=== PATIENT | male | born 1970 | race African-American/Black ===

== ENCOUNTER 2016-11-16 19:28 | Inpatient (IN) | payer OTHER ==
--- NOTE | ~2016-11-16 | PN ---
Unit #: [id number] #: [id number] Patient: KIANA SEWELL [id number] [facility] [address] [place] [address] [id number] I MR#: [id number] NAME: KIANA SEWELL. ROOM: P185 Age: 46 Sex: M Admission Date: 11/16/2016 : 1970 Attending Physician: Estrella Watkins M.D. Admitting Physician: Estrella Watkins M.D. Primary Care Physician: Kathrin Doctor Not In System [facility] PROGRESS NOTES DATE November 20, 2016 DISCUSSION Mr. Sewell is a 46-year-old male, who was seen today and chart was reviewed and the case was discussed with the staff. He has been anxious, withdrawn, and rather seclusive to himself. Meanwhile, he has been cooperative with the treatment recommendations and he has been taking the medications and tolerating them fairly well with no reported side effects. MENTAL STATUS EXAMINATION Middle-aged male, who was casually dressed with fair personal hygiene and appears to be in no acute distress or discomfort. He was awake and alert with impaired attention and concentration. His mood is anxious with a congruent affect. He denies any suicidal or homicidal ideations. His insight and judgment remain slightly impaired. TREATMENT PLAN 1. We will continue him on his current medications and treatment protocol, and will monitor his response to the medications, and make further adjustments as needed. 2. We will continue to followup. Dictated by... Joce Turner/livia TD: 11/20/2016 08:13 JOB #: [id number] Unit #: [id number] #: [id number] Patient: KIANA SEWELL PROGRESS NOTES Page 1 of 1 X Estrella Watkins MD PROGRESS NOTE
--- NOTE | ~2016-11-16 | PA ---
Unit #: [id number] #: [id number] [facility]: [facility] [id number] [facility] [address] [place] [address] [id number] I MR#: [id number] NAME: KIANA SEWELL. ROOM: P185 Age: 46 Sex: M Admission Date: 11/16/2016 : 1970 Date of Assessment: 11/17/2016 Attending Physician: Estrella Watkins M.D. Admitting Physician: Estrella Watkins M.D. Primary Care Physician: Generic Doctor Not In System PSYCHIATRIC ASSESSMENT IDENTIFYING DATA Mr. Sewell is a 46-year-old single male who is a resident of [place], [place] and was transferred to us from [facility] Emergency Room. CHIEF COMPLAINT "I'm wanting to ." HISTORY OF PRESENT ILLNESS Mr. Sewell is a 46-year-old male with history of mood disorder, who was seen at [facility] Emergency Room due to having suicidal ideation, and making statements that he wants to and that he began having thoughts about wanting to and that he feels useless, and decided to come to the hospital to get assistance and help, and reports that he is living with a friend and the environment is not the best and he has not been taking Zoloft and "I just want to ." The patient reports hearing voices sometimes telling him to go to "you're shit and just go ahead and ." He was seen to be danger to self and others and as such, recommendation for inpatient level of care for safety and stabilization was made and the patient was transferred to us. SUBSTANCE ABUSE HISTORY The patient reports history of alcohol, cannabis and cocaine abuse and reports that he has been drinking few beers, and smoking some cannabis, but denies any other drug abuse. PAST PSYCHIATRIC HISTORY The patient has had [facility] and review of the medical records indicate that he has been diagnosed and treated for mood disorder, but currently is noncompliant with treatment and he is not seeing a psychiatrist, and is not taking any psychotropic medications. PAST MEDICAL HISTORY No acute or chronic medical illnesses. ALLERGIES No known medication allergies. CURRENT MEDICATIONS None. PERSONAL AND SOCIAL HISTORY Unit #: [id number] #: [id number] Patient: KIANA SEWELL A 46-year-old male who reports that he is single, unemployed, and lives with a roommate and has poor social support system. MENTAL STATUS EXAMINATION Middle-aged male who was casually dressed with fair personal hygiene, appears to be in no acute distress or discomfort. He was awake and alert on interaction with intact orientation to time, place, and person. His mood was anxious and depressed with a congruent affect. His speech was slow and restricted in content. His thought processes were disorganized with some looseness of associations and suicidal ideations and auditory hallucinations. His insight and judgment remain significantly impaired. DIAGNOSTIC IMPRESSION Psychiatric: Major depressive disorder, recurrent, moderate, with psychosis; alcohol dependence, moderate and acute withdrawals. Medical: None. Stressors: Moderate psychosocial stressors. TREATMENT PLAN 1. The patient has presented with history of mood disorder and has been decompensating and will need inpatient hospitalization for detoxification, and safety, and stabilization. We will start him on detox protocol. We will closely monitor for any worsening withdrawal symptoms. 2. Supportive therapy was provided to the patient. 3. Safe, structured, and nourishing environment will be provided. ESTIMATED LENGTH OF STAY 5 to 7 days. ABILITY TO HELP SELF Limited. WILLINGNESS TO HELP SELF The patient appears to be willing to help self. STRENGTHS 1. Communicative. 2. Cooperative. PROBLEMS 1. Chronic dysphoric symptoms. 2. Poor social support system. DISCHARGE CRITERIA This will be contingent upon the patient's ability to show resolution of his depression and psychosis and his ability to stay safe to himself, particularly after discharge from the hospital. Dictated by... Joce Turner/rosina TD: 11/17/2016 15:29 JOB #: [id number] Unit #: [id number] #: [id number] Patient: KIANA SEWELL PSYCHIATRIC ASSESSMENT Page 1 of 1 X Estrella Watkins MD X PSYCHIATRIC ASSESSMENT
--- NOTE | ~2016-11-16 | DS ---
Unit #: [id number] #: [id number] Patient: [facility] [id number] [facility] [address] [place] [address] [id number] I MR#: [id number] NAME: KIANA SEWELL. ROOM: P185 Age: 46 Sex: M Admission Date: 11/16/2016 : 1970 Discharge Date: Attending Physician: Estrella Watkins M.D. Primary Care Physician: Generic Doctor Not In System DISCHARGE SUMMARY IDENTIFYING DATA Mr. Sewell is a 46-year-old single male, who is a resident of [place], [place], and was transferred to us from [facility] Emergency Room. DISCHARGE DIAGNOSES Psychiatric: Major depressive disorder, recurrent, moderate, with psychosis; alcohol dependence, moderate and acute withdrawals. Medical: None. Stressors: Moderate psychosocial stressors. HISTORY OF PRESENT ILLNESS Please see initial psychiatric evaluation for details. PAST PSYCHIATRIC HISTORY Please see initial psychiatric evaluation for details. PAST MEDICAL HISTORY Please see initial psychiatric evaluation for details. HOSPITAL COURSE The patient was admitted to the adult chemical dependency and psychiatric unit at [facility] and was oriented to the hospital environment. Routine p.r.n. medications were initiated, and he was started back on his home medications and medications were adjusted and he was closely monitored. He was taking the medications regularly and was tolerating them fairly well and was able to show a decent and therapeutic response and was willing to continue treatment on an outpatient basis and as such, it was decided that he will be discharged home and will continue treatment on an outpatient basis. DISCHARGE MEDICATIONS Zoloft 100 mg a day for depression and Seroquel 100 mg at bedtime for psychosis. DISCHARGE CONDITION Stable. PROGNOSIS Fair. Dictated by... Estrella Watkins M.D. Unit #: [id number] #: [id number] Patient: KIANA SEWELL IAA/modl TD: 11/21/2016 06:39 JOB #: [id number] DISCHARGE SUMMARY Page 1 of 1 X Estrella Watkins MD X DISCHARGE SUMMARY
--- NOTE | ~2016-11-16 | CO ---
Unit #: [id number] #: [id number] Patient: MEHRAN SEWELL [id number] [facility] [address] [place] [address] [id number] I MR#: [id number] NAME: MEHRAN SEWELL. ROOM: P185 Age: 46 Sex: M Admission Date: 11/16/2016 : 1970 Attending Physician: Estrella Watkins M.D. Primary Care Physician: Generic Doctor Not In System Consultation Date: 11/21/2016 CONSULTATION REPORT SUBJECTIVE Mehran is a 46-year-old originally admitted on 11/17/2016 because of his polysubstance abuse. Admission labs included RPR, which was positive with his followup FTA also positive. The patient was informed of his status. PLAN He was administered Bicillin 1.2 million units IM in each hip. He needs to follow up with the health department to complete his treatment. He understands that he is still contagious. Dictated by... Lynda CastroADean-Yani. for Joce Diaz/rosina TD: 11/30/2016 00:55 JOB #: [id number] CONSULTATION REPORT Page 1 of 1 X Mirtha Dickinson CONSULTATION REPORT
--- NOTE | ~2016-11-16 | PN ---
Unit #: [id number] #: [id number] Patient: KIANA SEWELL [id number] [facility] [address] [place] [address] [id number] MR#: [id number] NAME: KIANA SEWELL. ROOM: P185 Age: 46 Sex: M Admission Date: 11/16/2016 : 1970 Attending Physician: Estrella Watkins M.D. Admitting Physician: Estrella Watkins M.D. Primary Care Physician: Kathrin Doctor Not In System [facility] PROGRESS NOTES DATE 11/18/2016 DISCUSSION Mr. Sewell is a 46-year-old, male who was seen today and chart was reviewed and case was discussed with the staff. He has been anxious, withdrawn, depressed and seclusive to himself but at the same time has been showing very poor insight into his condition. He has been taking the medication and tolerating them fairly well. MENTAL STATUS EXAM Middle-aged male who was casually dressed with fair personal hygiene, appears to be in no acute distress or discomfort. He was awake and alert with intact orientation. His mood was anxious with congruent affect. He denies any suicidal or homicidal ideation. His insight and judgement remains slightly impaired. TREATMENT PLAN We will continue him on his current treatment protocol. We will monitor his response and make further adjustments as needed. Dictated by... Joce Turner/uvaldo TD: 11/19/2016 04:57 JOB #: [id number] [facility] PROGRESS NOTES Page 1 of 1 X Estrella Watkins MD PROGRESS NOTE
--- NOTE | ~2016-11-16 | HP ---
Unit #: [id number] #: [id number] Patient: MEHRAN SEWELL [id number] [place] [address] [id number] I MR#: [id number] NAME: MEHRAN SEWELL. ROOM: P185 Age: 46 Sex: M Admission Date: 11/16/2016 : 1970 Attending Physician: Estrella Watkins M.D. Admitting Physician: Estrella Watkins M.D. Primary Care Physician: Generic Doctor Not In System HISTORY AND PHYSICAL HISTORY OF PRESENT ILLNESS Mehran is a 46-year-old male admitted to [facility] on 11/16/2016 for suicidal ideation. He has a history of polysubstance abuse with recent binge alcohol use. PAST MEDICAL HISTORY None. PAST SURGICAL HISTORY Left ankle surgery with pin placement after a fracture. SOCIAL HISTORY He smokes one pack of cigarettes daily. Occasional binge alcohol use and occasional cocaine use. He is currently single and living with a friend. FAMILY HISTORY Noncontributory. REVIEW OF SYSTEMS CONSTITUTIONAL: No fever or chills. HEENT: Denies any sore throat, ear pain or runny nose. CARDIOVASCULAR: Denies chest pain, irregular heart rhythm or palpitations. CHEST: Denies shortness of breath or cough. No hemoptysis. GASTROINTESTINAL: Denies nausea, vomiting, diarrhea or chronic constipation. ENDOCRINE: Denies history of increased thirst or urination. No recent significant weight loss or gain. GENITOURINARY: Denies dysuria, frequency, or hematuria. SKIN: Denies any rashes. HEMATOLOGIC: Denies history of increased bleeding or bruising. MUSCULOSKELETAL: Denies any hot, swollen joints. No generalized muscle pain. NEUROLOGIC: Denies problems with vision or speech. No frequent, severe headaches. No numbness, tingling or weakness in any extremities. Denies loss of bladder or bowel control. CURRENT MEDICATIONS None. ALLERGIES No known drug allergies. Unit #: [id number] #: [id number] Patient: MEHRAN SEWELL PHYSICAL EXAMINATION GENERAL: Alert, oriented, in no acute distress. VITAL SIGNS: Blood pressure 133/92, heart rate 61, respirations 18, temperature 98.1. HEIGHT: 5 foot 10 inches. WEIGHT: 170 pounds. SKIN: Warm and dry without rash or lesion. HEENT: Normocephalic. TMs not viewed. Oral and nasal passages clear. Conjunctivae clear. PERRLA. EOMs intact. NECK: Supple without lymphadenopathy or thyromegaly. HEART: Regular rate and rhythm without murmur. LUNGS: Clear. ABDOMEN: Soft, nontender, without masses or hepatosplenomegaly. : Not done. EXTREMITIES: No evidence of cyanosis, clubbing or edema. Moves all without focal deficit. NEUROLOGICAL: Grossly within normal limits. Cranial Nerves: II: Visual durbin are intact. III, IV AND : Extraocular movements are intact. Pupils are equal, round and reactive to light. V: Facial sensation is grossly normal. VII: Facial movements and expression are normal. VIII: Auditory acuity grossly intact. IX, X: Uvula is midline. Phonation is normal. XI: Patient shrugs shoulders and turns head normally. XII: Tongue protrudes in the midline. Sensory and Motor Function: Sensory and motor sensation is grossly normal. Motor: moves all extremities well. Coordination: Gait is normal. Deep Tendon Reflexes: Intact. IMPRESSION Psychiatric admission. RECOMMENDATIONS Psychiatric, per psychiatrist. MEDICAL: I see no contraindications to participating in facility's activities. MEDICAL PROGNOSIS Good. MEDICAL CONDITION Stable. Dictated by... Rell Pérez/uvaldo TD: 11/18/2016 00:18 JOB #: [id number] Unit #: [id number] #: [id number] Patient: MEHRAN SEWELL HISTORY AND PHYSICAL Page 1 of 1 X SUNSHINE PALACIOS APRN X HISTORY AND PHYSICAL
--- NOTE | ~2016-11-16 | PN ---
Unit #: [id number] #: [id number] Patient: KIANA SEWELL [id number] [facility] [address] [place] [address] [id number] I MR#: [id number] NAME: KIANA SEWELL. ROOM: P185 Age: 46 Sex: M Admission Date: 11/16/2016 : 1970 Attending Physician: Estrella Watkins M.D. Admitting Physician: Estrella Watkins M.D. Primary Care Physician: Kathrin Doctor Not In System [facility] PROGRESS NOTES DATE 11/19/2016 DISCUSSION Mr. Sewell is a 46-year-old male with mood disorder who was seen today and chart was reviewed and case was discussed with the staff. He has been anxious, withdrawn, depressed and rather seclusive to himself though has been cooperative with treatment recommendations and has been taking medications and tolerating them fairly well with no reported side effects. MENTAL STATUS EXAMINATION Middle-aged male who was casually dressed with fair personal hygiene and appears to be in no acute distress or discomfort. He was awake and alert on interaction with intact orientation. His mood was anxious and depressed with congruent affect. His speech is slow and restricted in content. He denies any suicidal or homicidal ideation and also denies any auditory or visual hallucinations. His insight and judgement remains slightly impaired. TREATMENT PLAN 1. Will continue his current medications and treatment protocol. Will monitor his response to the medications and make further adjustments as needed. 2. We will continue to follow up. Dictated by... Joce Turner/lan TD: 11/19/2016 16:14 JOB #: [id number] Unit #: [id number] #: [id number] Patient: KIANA SEWELL [facility] PROGRESS NOT[facility] Page 1 of 1 X Estrella Watkins MD PROGRESS NOTE
[2016-11-18 09:40] LABS: URINE APPEARANCE CLEAR; URINE BILIRUBIN NEG (NEG); URINE BLOOD NEG (NEG); URINE COLOR DK YELLOW; URINE GLUCOSE NEG (NEG); URINE KETONE NEG (NEG); URINE LEUKOCYTE ESTERASE NEG (NEG); URINE NITRATE NEG (NEG); URINE PROTEIN NEG (NEG); URINE SPECIFIC GRAVITY 1.014 (1.003-1.035)
[2016-11-18 12:37] LABS: BASOPHIL% 0.7 % (0-2.5); EOSINOPHIL% 1.6 % (0.0-7.0); HEMATOCRIT 41.8 % (38.0-50.0); HEMOGLOBIN 14.3 gm/dL (13.0-16.0); LYMPHOCYTE# 0.6 X10e3 (1.0-3.5); LYMPHOCYTE% 24.8 % (17.0-45.0); MEAN CELL VOLUME 93.4 FL (83-96); MEAN CORPUSCULAR HEMOGLOBIN 31.9 PG (28-34); MEAN CORPUSCULAR HGB CONC 34.1 g/dL (30-36); MEAN PLATELET VOLUME 8.7 FL (6.5-11.5); MONOCYTE# 0.3 X10e3 (0-1.0); MONOCYTE% 10.5 % (3.0-12.0); NEUTROPHIL# 1.5 X10e3 (1.5-7.1); NEUTROPHIL% 62.4 % (40-75); PLATELET COUNT 165 X10e3 (140-420); RED BLOOD COUNT 4.48 X10e (3.90-5.60); WHITE BLOOD COUNT 2.4 X10e3 (4.0-10.5)
[2016-11-18 12:39] LABS: DIFF IND YES
[2016-11-18 13:06] LABS: PLATELET ESTIMATE NORMAL (NORMAL)
[2016-11-18 13:07] LABS: RBC NORMAL YES
== END 2016-11-21 08:35 | disposition home or self-care (01) | DRG 885 ==
LOC: P1E 19:28
PROVIDERS: Psychiatry & Neurology Psychiatry
PROC: HZ2ZZZZ Detoxification Services for Substance Abuse Treatment (ICD-10-PCS; principal; 2016-11-16)
DX: F33.1 Major depressive disorder, recurrent, moderate (principal); F39 Unspecified mood [affective] disorder; F10.239 Alcohol dependence with withdrawal, unspecified; F17.210 Nicotine dependence, cigarettes, uncomplicated
CPT/HCPCS: 81003; 85025; 86592; 86780; J0561